=== PATIENT | female | born 1985 | race Caucasian/White ===

== ENCOUNTER 2020-10-15 08:54 | Emergency (ER) | payer MEDICAID, SELFPAY ==
[2020-10-15 09:03] VITALS: BP 105/59; PULSE 86; RESP 18; TEMP 36.6; O2SAT 97; BMI 36.2
--- NOTE | 2020-10-15 09:23 | ED_ITS ---
HPI - Extremity Problem General Chief complaint: Extremity Injury, Upper Stated complaint: neck shoulder arm pain Time Seen by Provider: 10/15/20 09:14 Source: patient Mode of arrival: ambulatory Limitations: language barrier (Citizen [place]-speaking) History of Present Illness HPI Narrative: 35yoF c No Sig PMHx presenting to the ED c c/o R neck/shoulder/arm pain since Friday. Patient reports this started after she had to perform repetitive hand movements and lifting boxes/pallets while [facility] [employer] [facility] when a truck arrived at 20:30 with 27 pallets on it and her and another lady had to unload the truck. Patient denies any headaches, dizziness, paresthesias, numbness, joint swelling/stiffness, chest pain or shortness, of breath, palpitations, any symptoms or any other symptoms complaints or concerns at this time. Related Data Previous Rx's Medication Instructions Recorded acetaminophen-codeine 1 tab PO Q8H PRN #10 tab 10/15/20 cyclobenzaprine 10 mg PO TID PRN #10 tab 10/15/20 ibuprofen 800 mg PO Q8H PRN #14 tab 10/15/20 lidocaine [Lidoderm] 1 patch TOPICAL DAILY #30 ea 10/15/20 Allergies Allergy/AdvReac Type Severity Reaction Status Date / Time No Known Allergies Allergy Verified 10/15/20 09:06 Review of Systems Review of Systems: Constitutional : No Fever, No Chills, No Night Sweats, No Fatigue, No Malaise ENT/Mouth : No Hearing loss, No Ear Pain, No Nasal Congestion, No Sinus Pain, No Hoarseness, No sore throat, No Rhinorrhea, No Swallowing Difficulty Eyes: No Eye Pain, No Swelling, No Redness, No Foreign Body, No Discharge, No Vision Changes Cardiovascular : No Chest Pain, No SOB, No Dyspnea on Exertion, No Orthopnea, No Edema, No Palpitations Respiratory : No Cough, No Sputum, No Wheezing, No Dyspnea Gastrointestinal : No Nausea, No Vomiting, No Diarrhea, No Constipation, No abdominal Pain, No Hematochezia, No Melena Genitourinary : no irregular bleeding, No Dysuria, No Urinary Frequency, No Hematuria, No Urinary Incontinence, No Urgency, No Flank Pain, No Urinary Flow Changes, No Hesitancy Musculoskeletal : + joint pain, No Myalgias, No Joint Swelling Skin : No Skin Lesions, No rash Neuro : No Weakness, No Numbness, No Paresthesias, No Dizziness, No Headache Heme/Lymph:No Lymphadenopathy Yes all other systems are reviewed and are negative [facility] Past Medical History Attestation statement: The following information was validated with the patient. Medical History No known health problems Social History Social History Advance Directives: No Advance Directives Information Provided: No Physical Exam Vital Signs: Vital Signs: Last Vital Signs Temp 97.9 F 10/15/20 09:03 Pulse 86 10/15/20 09:03 Resp 18 10/15/20 09:03 BP 105/59 L 10/15/20 09:03 Pulse Ox 97 10/15/20 09:03 Body Mass Index 36.2 vital signs have been reviewed as normal and appeared to be correct. Blood pressure normal. Heart rate normal. Respiration rate normal. Temperature normal. Oxygen saturation normal. Appearance: Alert. Oriented X3. Patient very tearful in pain otherwise No acute distress. Head: Normal external exam. Normocephalic. Atraumatic. Eyes: PERRLA. EOMI. Conjunctiva and sclera normal. Eyelids normal. ENT: Pharynx normal. Uvula midline. Moist mucous membranes. Neck: Normal inspection. Neck supple. FROM. No adenopathy. No meningeal signs. No neck mass noted. Patient tender to palpation of right paracervical muscu lature/trapezius muscle. Muscle spasm noted. No mid cervical tenderness step- offs or deformities noted. Patient has full range of motion of neck and upper and lower extremities. Reflexes intact bilaterally and distally. Patient neuro intact bilaterally and distally on all 4 extremities. No rashes/lesion/induration/fluctuance or signs of infection noted. CVS: Normal heart rate and rhythm. Heart sound normal. No murmurs noted. Pulses normal throughout. Respiratory: No respiratory distress. Painless inspiration. Breath sounds normal. No wheezes/rales/rhonchi noted. Chest nontender. No accessory muscle usage noted or decreased air movement noted. Back: Full range of motion noted. Skin: Skin warm and dry. Normal skin color. Normal skin turgor. No rashes/lesions/lacerations noted. Extremities: Extremities exhibit normal range of motion. Extremities nontender. Neuro: Oriented X 3. No motor deficit. No sensory deficit. Reflexes normal. Patient has a normal steady gait. Course Course Course Narrative: 35yoF c No Sig PMHx presenting to the ED c c/o R neck/shoulder/arm pain since Friday. Patient reports this started after she had to perform repetitive hand movements and lifting boxes/pallets while working at [employer] when a truck arrived at 20:30 with 27 pallets on it and her and another lady had to unload the truck. - on exam patient is alert and oriented x3. Is very tearful and pain although denies any acute other acute distress. Patient has muscle spasm 2 right pa racervical/trapezius muscle. Has full range of motion of neck and upper and lower extremities. No obvious deformities. Pt c likely muscular pain, but could be herniated disc. Neuro exam shows no deficits. Not c/w AAA/epidural abscess/dissection.No high risk Hx (Incont, fever, immunosupp, recent surgery/LP, coag, signif trauma, wt loss, puls mass, hx/o Ca, TB, or IVDU) to warrant MRI/CT today. Not c/w Pyelo/UTI/kidney stone/spinal fx. Not cauda equina syndrome. DC c meds and f/u. Patient understands and agrees the plan. MDM - Extremity (Nontraumatic) Medical Records Attestation: I reviewed the patient's medical records. Discharge Plan Discharge Clinical Impression: Neck muscle spasm, Trapezius muscle spasm, Muscle spasm of right shoulder, Work related injury Patient Disposition: Home, Self-Care Instructions: Muscle Spasm (ED), Return to Work Instructions (ED) Prescriptions: New cyclobenzaprine 10 mg tablet 10 mg PO TID PRN (Reason: muscle spasm) Qty: 10 RF: 0 ibuprofen 800 mg tablet 800 mg PO Q8H PRN (Reason: pain) Qty: 14 RF: 0 acetaminophen-codeine 300-30 mg tablet 1 tab PO Q8H PRN (Reason: pain) Qty: 10 RF: 0 lidocaine [Lidoderm] 5 % adhesive patch,medicated 1 patch topical DAILY Qty: 30 RF: 0 Referrals: Cj Pride MD [Physician] - 2 days Emma Guadalupe PA [Physician Application Development Director] - 2 days Altagracia Mitchell PA [Physician Application Development Director] - 2 days January,Shreya June PA-C [Physician Application Development Director] - 2 days Stand Alone Forms: Work/School Release Print Language: Citizen [place]
== END 2020-10-15 10:09 | disposition home or self-care (01) ==
PROVIDERS: Emergency Provider Internal Medicine
DX: S13.9XXA Sprain of joints and ligaments of unspecified parts of neck, initial encounter (principal); M54.2 Cervicalgia; M62.838 Other muscle spasm; X50.0XXA Overexertion from strenuous movement or load, initial encounter; X50.3XXA Overexertion from repetitive movements, initial encounter; Y93.9 Activity, unspecified; Y92.9 Unspecified place or not applicable; Y99.0 Civilian activity done for income or pay
CPT/HCPCS: 99283

== ENCOUNTER 2023-06-25 06:38 | Outpatient (REF) | payer MEDICAID, SELFPAY | END 2023-06-25 06:39 | disposition home or self-care (01) | LOC: HO.HOSX 06:38 | PROVIDERS: Visit Provider Orthopaedic Surgery | DX: M25.562 Pain in left knee (principal) | CPT/HCPCS: 20610; 73562; 99202; J3301 ==

== ENCOUNTER 2023-06-25 09:44 | Outpatient (AMB) | payer MEDICAID, SELFPAY ==
--- NOTE | 2023-06-25 09:52 | A.OFFVIS_ITS ---
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 by Dr. Dior approximately 2 years ago. The patient states that initially she got fairly good relief from that procedure. She then re-injured her knee approximately 1 year ago. She states that she had an MRI in [place] at that time but she does not remember the name of the facility. She states that her left knee will give out several times per day. She has done physical therapy which aggravated her symptoms. She has also tried Tylenol and anti-inflammatory medicines which gave her minimal relief. Allergies No Known Allergies Allergy (Verified 06/25/23 10:00) Medication List - Last Reconciled 06/25/23 by Tomasz Thacker MD acetaminophen-codeine 300-30 mg 1 tab PO Q8H PRN cyclobenzaprine 10 mg PO TID PRN ibuprofen 800 mg PO Q8H PRN lidocaine 5% (Lidoderm) 1 patch topical DAILY PFSH Medical History No known health problems Physical Exam Vital Signs: BMI result Body Mass Index 38.9 Const Other: Well-nourished well-developed very friendly female awake alert and oriented x3 in no acute distress Extrem Other: Bilateral lower extremity examination shows good capillary refill, no skin lesions noted, normal sensation light touch Left knee examination shows that the surgical incisions are well healed, no erythema, minimal crepitus with range of motion, tenderness along her medial joint line, positive Steffi's test, no instability Office Procedures Joint Injection/Drain Joint Injection/Drain Primary Site: left knee Prep: site was prepped using aseptic technique Injected: 40 mg of, Kenalog and 1% plain lidocaine Procedure: The patient tolerated the procedure well Coding 75486 - Large joint Procedure code (CPT) selection complete Results Reviewed Results Reviewed: 06/25/23 10:06 Lidocaine HCl 2 % MPF [Xylocaine 2 % MPF] 5 ml .ROUTE .STK-MED ONE Triamcinolone Acetonide [Kenalog-40] 40 mg .ROUTE .STK-MED ONE X-rays of the patient's left knee show mild joint space narrowing, no acute bony abnormalities Previous MRI films are not available today Assessment & Plan Assessment & Plan (1) Left knee pain: Code(s): M25.562 - Pain in left knee Plan Ms. Arnaldo Orellana presents with left knee pain and mechanical symptoms most likely due to a tear of her medial meniscus. I had a lengthy discussion with the patient regarding the treatment options. The patient wishes to hold off on further surgery for as long as possible. I agree with this plan. The risks and benefits of a cortisone injection were discussed at length with the patient. The patient wished to proceed. Following the injection I aspirated 60 cc of clear fluid from her left knee. The patient tolerated the injection well. Activity modifications were discussed at length with the patient. She will follow up with me on an as-needed basis should her symptoms not plateau at an unacceptable level over the next few months. Feel free to call me at any time should questions regarding her orthopedic management arise. Thank you very much for asking me to see this very nice patient. I spent 22 minutes in reviewing the patient's records and imaging studies, seeing the patient and documenting in the medical record. Orders: Orders XR knee LT 3V Today M25.562 - Pain in left knee AMB Joint Injection/Aspiration Today M25.562 - Pain in left knee Coding Level of Care Code New Pt Level 2 (70565) Diagnoses Left knee pain M25.562 CPT Codes Coding - 61103 Large joint: 03312 - Large joint ([id number])
[2023-06-25 10:00] VITALS: BMI 38.9
== END 2023-06-25 10:24 | disposition home or self-care (01) ==
PROVIDERS: Visit Provider Orthopaedic Surgery
DX: M25.562 Pain in left knee (principal)
CPT/HCPCS: 20610; 99202

== ENCOUNTER 2024-06-30 09:14 | Outpatient (REF) | payer MEDICAID, SELFPAY ==
[2024-06-30 11:29] LABS: MANUAL DIFF FLAG NO
[2024-06-30 11:58] LABS: Basophils Percent Auto 0.5 % (0-2); Eosinophils Absolute Auto 0.1 X10*3/uL (0.0-0.4); Eosinophils Percent Auto 1.4 % (0-4); Hematocrit 39.8 % (37.0-47.0); Hemoglobin 13.2 g/dl (12.0-16.0); Imm Gran Abs Auto 0.01 X10*3/uL (0.00-0.03); Imm Gran Pct Auto 0.2 % (0.0-0.4); Lymphocytes Percent Auto 23.9 % (20-40); Mean Corpuscular HGB Conc 33.2 g/dl (31.0-35.0); Mean Corpuscular Hemoglobin 30.8 pg (27.0-33.0); Mean Corpuscular Volume 92.8 fL (80.0-98.0); Mean Platelet Volume 10.1 fL (9.4-12.3); Monocytes Absolute Auto 0.4 X10*3/uL (0.1-1.2); Monocytes Percent Auto 9.6 % (2-11); Neutrophils Absolute Auto 2.7 x10*3/uL (2.0-8.3); Neutrophils Percent Auto 64.4 % (45-73); Platelet Count 261 X10*3/uL (160-400); Red Blood Count 4.29 X10*6/uL (4.20-5.50); Red Cell Distribution Width 12.7 % (11.0-16.0); White Blood Count 4.2 X10*3/uL (4.8-10.8)
[2024-06-30 12:26] LABS: Alanine Aminotransferase 15 U/L (0-31); Alkaline Phosphatase 48 U/L (39-117); Anion Gap 9 (12-20); Aspartate Amino Transferase 16 U/L (5-31); Bilirubin Total 0.8 mg/dL (0.0-1.0); Blood Urea Nitrogen 14 mg/dL (9-16); Calcium 9.1 mg/dL (8.4-10.2); Carbon Dioxide 28 mmol/L (22-29); Chloride 106 mmol/L (96-108); Cholesterol 187 mg/dL (<200); Estimated Glomerular Filt Rate > 60; Glucose Random 94 mg/dL (60-115); HDL Cholesterol 62 mg/dL (>40); Insulin 12 uU/mL (2-29); LDL Cholesterol Calculated 107 mg/dL (<100); Potassium 3.9 mmol/L (3.3-5.1); Sodium 139 mmol/L (135-145); TSH reflex Free T4 0.94 uIU/mL (0.32-4.0); Total Protein 7.2 g/dL (6.5-8.0); Triglycerides 92 mg/dL (<150)
[2024-06-30 12:28] LABS: HIV AB/AG Nonreactive (Nonreactive); HIV Num 1 0.06 S/CO (0.00-0.99); Rheumatoid Factor 14.6 IU/mL (<15.0); ~HepC Num1 0.93 S/CO (0.00-0.79)
[2024-06-30 12:36] LABS: Erythrocyte Sedimentation Rate 9 MM/HR (0-20)
[2024-06-30 14:07] LABS: ~HepC Num2 0.93; ~HepC Num3 0.95
[2024-06-30 14:08] LABS: ~Hepatitis C Antibody GRAYZONE (Nonreactive)
[2024-07-02 12:29] LABS: Anti Nuclear Antibody Screen NEGATIVE (NEGATIVE)
[2024-07-03 14:24] LABS: HCV Log PCR <1.18 NOT DETECTED Log IU/mL (NOT DETECTED); HepC Viral Load <15 NOT DETECTED IU/mL (NOT DETECTED)
[2024-07-07 13:08] LABS: Cyclic Citrullinated Peptide <16 UNITS
== END 2024-06-30 09:15 | disposition home or self-care (01) ==
LOC: HO.CHCLDS 09:14
PROVIDERS: Visit Provider Family Medicine
DX: E66.812 Obesity, class 2 (principal); Z68.38 Body mass index [BMI] 38.0-38.9, adult; Z13.9 Encounter for screening, unspecified; M25.50 Pain in unspecified joint; Z13.29 Encounter for screening for other suspected endocrine disorder; Z13.228 Encounter for screening for other metabolic disorders; Z13.0 Encounter for screening for diseases of the blood and blood-forming organs and certain disorders involving the immune mechanism
CPT/HCPCS: 36415; 80053; 80061; 83525; 84443; 85025; 85652; 86038; 86140; 86200; 86431; 86803; 87389; 87522

== ENCOUNTER 2024-10-10 09:38 | Emergency (ER) | payer OTHER, SELFPAY ==
[2024-10-10 10:07] VITALS: BP 108/50; PULSE 83; RESP 18; TEMP 36.7; O2SAT 99; BMI 38.0
--- NOTE | 2024-10-10 14:09 | ED.DENTAL ---
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 Reports history of poor dentition. She has not followed with a dentist in some time. The last time she saw a dentist was when she lived in [place]. She reports pain to her right lower and upper wisdom teeth x2 days. She has been taking Motrin at home with minimal relief. Denies radiation of pain. Denies difficulty opening her mouth or swallowing. Denies difficulty controlling secretions. Denies any drainage. Denies fever or chills. Denies trauma/ injury. MD Complaint: tooth pain Location: Tooth # (1, 32) Onset (ago): day(s) (2) Duration: constant Severity: severe Severity scale (1-10): >10 Relieving factors: NSAIDs Related Data Previous Rx's ?Medication ?Instructions ?Recorded acetaminophen 300 mg-codeine 30 mg 1 tab PO Q8H PRN pain #10 tabs 10/15/20 tablet cyclobenzaprine 10 mg tablet 10 mg PO TID PRN muscle spasm #10 10/15/20 tabs ibuprofen 800 mg tablet 800 mg PO Q8H PRN pain #14 tabs 10/15/20 lidocaine 5 % topical patch 1 patch topical DAILY pain #30 ea 10/15/20 (Lidoderm) amoxicillin 875 mg-potassium 1 tab PO BID 7 days #14 tabs 10/10/24 clavulanate 125 mg tablet tramadol 50 mg tablet 50 mg PO Q8H PRN pain (scale score 10/10/24 4-6) #7 tabs Allergies Allergy/AdvReac Type Severity Reaction Status Date / Time No Known Allergies Allergy Verified 10/10/24 10:09 Review of Systems Review of Systems: Constitutional: No fever, chills, fatigue, night sweats, weight changes ENT/Mouth: No ear pain, hearing loss, nasal congestion, sinus pain, rhinorrhea, sore throat, +dental pain Eyes: No eye pain, swelling, redness, vision changes, discharge Cardio: No chest pain, palpitations, LEON, orthopnea, peripheral edema Pulm: No SOB, cough, sputum, wheezing, dyspnea, hemoptysis GI: No nausea, vomiting, hematemesis, abdominal pain, diarrhea, constipation, hematochezia, melena : No irregular bleeding, dysuria, frequency, urgency, hesitancy, hematuria, flank pain, urinary flow changes, urinary incontinence or retention MSK: No back pain, neck pain, joint pain, myalgias Skin: No lesions, rashes Neuro: No weakness, numbness, paresthesias, LOC, dizziness, headache Psych: No anxiety/panic, depression, SI/HI, AH/VH All other systems reviewed and are negative. [facility] Past Medical History Attestation statement: The following information was validated with the patient. Source: old records reviewed and nursing notes reviewed Medical History No known health problems Physical Exam Vital Signs: Vital Signs: Last Vital Signs Temp 98.0 F 10/10/24 10:07 Pulse 83 10/10/24 10:07 Resp 18 10/10/24 10:07 BP 108/50 L 10/10/24 10:07 Pulse Ox 99 10/10/24 10:07 O2 Del Method Room Air 10/10/24 10:07 BMI result Body Mass Index 38.0 Vital signs stable, afebrile General: Well appearing, in no acute distress. Skin: Warm, dry, intact. No rashes or lesions. Head: Normocephalic, atraumatic. EENT: Hearing is intact b/l. Conjunctiva clear. PERRLA. EOM intact. Moist mucous membranes.? + No facial edema. Tongue and lips wnl + multiple dental caries and poor dentition. Right upper and lower wisdom teeth with localized periapical swelling to the fecal ginginva. No pointing. No active bleeding/ discharge. TTP. No palpable fluctuance. No edema to buccal mucosa + Posterior oropharynx without erythema/edema. Uvula midline. Controlling secretions and speaking in complete sentences + No submandublar, submental or cervical LAD. No anterior neck swelling. no trismus. Cardiac: Chest wall symmetric. RRR Lungs: Normal respiratory effort without accessory muscle use. CTA bilaterally Ext: Upper and lower extremities atraumatic, without tenderness, deformity, swelling or erythema Neuro: AOx3. Normal speech. Ambulating with steady gait. Course Course Course Narrative: Patient noted to have dental infection. There is no evidence of abscess that warrants drainage at this time. Will discharge patient home with appropriate pain control and Augmentin. Patient advised to follow up with dentist this week. A referral has been provided. Patient has remained stable throughout ED visit today. I discussed worrisome signs and symptoms and when to return to the ED. All questions answered at this time. Patient is agreeable with disposition and stable for discharge. Medical Decision Making Medical Decision Making MDM Narrative: 39-year-old Citizen [place]-speaking female with no significant past medical history presents to the ED today for evaluation of dental pain x2 days. Vital signs stable. Afebrile. She is nontoxic-appearing and in no acute distress. On exam, no facial edema. Tongue and lips wnl. multiple dental caries and poor dentition. Right upper and lower wisdom teeth with localized periapical swelling to the fecal ginginva. No pointing. No active bleeding/ discharge. TTP. No palpable fluctuance. No edema to buccal mucosa. Posterior oropharynx without erythema/edema. Uvula midline. Controlling secretions and speaking in complete sentences. No submandublar, submental or cervical LAD. No anterior neck swelling. Differential includes dental/ periapical abscess/infection, apthous stomatitis. Unlikely mono, herpes, sialadenitis, sialolithiasis, CLINICAL EXERCISE PHYSIOLOGIST, retropharyngeal abscess, deep neck infection, osteomyelitis, facial cellulitis/ abscess, lymphoma, Jorje's angina. Plan for pain control and discharge home with antibiotics and dentist follow up. Differential Diagnosis Differential Diagnoses: The differential diagnosis associated with the presentation includes as above. Admission/Observation Not indicated. Tests considered The following testing was considered but not selected: I considered obtaining a CT of the soft tissues neck however these is no evidence of ludwigs angina or concern for deep tissue infection. Not warranted at this time. Prescription Management I considered prescription management with: Pain Medication and Antibiotic Social Determinants Patient?s care significantly limited by Social Determinants of Health including: Other Social Determinant of Health Critical Care Time Critical Care Time Critical Care Time: No Discharge Plan Discharge Clinical Impression: Toothache Patient Disposition: Home, Self-Care Instructions: Toothache (ED) Additional Instructions: You were evaluated in ED today for dental pain. Augmentin is an antibiotic that has been sent to your pharmacy for treatment. Take this as prescribed and do not skip any doses. Take this to completion or the infection may persist or worsen. On Augmentin, softer bowel movements are to be expected. Call your provider if you move your bowels more than 4 times a day, your bowel movements are almost all liquid, or you get a rash.? Take tylenol/ motrin at home as needed for pain. Tramadol is a pain medication that has been sent to your pharmacy for you to take for break-through pain. Use this with caution. YOU NEED TO FOLLOW UP WITH A DENTIST. You have been provided with a referral to [facility]. They are currently taking new clients. Call them to make an appointment. They will not call you. Return with new or worsening symptoms. In the case of an emergency call 471. [facility]: [phone] [address] [facility] [address] Prescriptions: New amoxicillin-pot clavulanate 875-125 mg tablet 1 tab PO BID 7 Days Qty: 14 0RF tramadol 50 mg tablet 50 mg PO Q8H PRN (Reason: pain (scale score 4-6)) Qty: 7 0RF No Action cyclobenzaprine 10 mg tablet 10 mg PO TID PRN (Reason: muscle spasm) Qty: 10 0RF ibuprofen 800 mg tablet 800 mg PO Q8H PRN (Reason: pain) Qty: 14 0RF acetaminophen-codeine 300-30 mg tablet 1 tab PO Q8H PRN (Reason: pain) Qty: 10 0RF lidocaine [Lidoderm] 5 % adhesive patch,medicated 1 patch topical DAILY Qty: 30 0RF Rx Instructions: leave on most painful area for up to 12 hrs. Can be substituted Print Language: Citizen [place]
[2024-10-10 14:24] VITALS: BP 108/50; PULSE 83; RESP 18; TEMP 36.7; O2SAT 99
== END 2024-10-10 14:24 | disposition home or self-care (01) ==
PROVIDERS: Emergency Provider Emergency Medicine; PCP Family Medicine
DX: K08.89 Other specified disorders of teeth and supporting structures (principal)
CPT/HCPCS: 99282

== ENCOUNTER 2025-07-19 11:20 | Outpatient (REF) | payer OTHER, SELFPAY ==
--- OUTSIDE RECORDS SUMMARY | 2025-07-19 11:00 | XMS_ITS | Encounter Summary ---
Author Organization [employer] Address [address] [place] [address] [address] [place] [address] Care Team Providers Care Sales Branch Manager Name Role Phone Ira Wu MD Primary Care Provider [phone] Reason for Referral * Imaging (Routine) - Authorized Specialty Diagnoses / Procedures Referred By Contac t Referred To Contact Radiology Diagnoses Right-sided pelvic pain Procedures US Pelvis Transvaginal Ira Wu MD [address] [place] [address] Phone: tel: fax: [address] Phone: tel: fax: Referral ID Status Reason Start Date Expiration Date V isits Requested Visits Authorized [id number] Authorized 07/19/2025 07/19/2026 1 1 * Imaging (Routine) - Authorized Specialty Diagnoses / Procedures Referred By Contac t Referred To Contact Radiology Diagnoses Right-sided pelvic pain Procedures Us Pelvis complete Ira Wu MD [address] [place] [address] Phone: tel: fax: [address] Phone: tel: fax: Referral ID Status Reason Start Date Expiration Date V isits Requested Visits Authorized [id number] Authorized 07/19/2025 07/19/2026 1 1 Reason for Visit * Reason Comments Gynecologic Exam , P:2, C:2, A:0 Encounter Details Date Type Department Care Team (Latest Contact Info) Description 07/19/2025 11:00 AM EDT Procedure Visit [facility] [address] [place] [address] Ira Wu MD [address] [place] [address] Right-sided pelvic pain (Primary Dx); Cervical cancer screening Social History Tobacco Use Types Packs/Day Years Used Date Smoking Tobacco: Never Passive Smoke Exposure: Never Smokeless Tobacco: Never Tobacco Cessation:Counseling Given: Not Answered Alcohol Use Standard Drinks/Week Comments Never 0 (1 standard drink = 0.6 oz pur e alcohol) Depression Answer Date Recorded Patient Health Questionnaire-9 Score 5 06/29/2024 Patient Health Questionnaire-9 Score 5 06/29/2024 Last PHQ-9: Questionnaire Data Not on file 1 Housing Stability Answer Date Recorded What is your housing situation today? I have maira xie 06/29/[address] you li ve. Do you have problems with any of the following? None of the above 06/29/2024 Food Insecurity Answer Date Recorded Within the past 12 months, y ou worried that your food would run out before you got money to buy more: Never True 06/29/2024 Within the past 12 months,th e food you bought just didn't last and you didn't have enough money to get more: Never True 04/2024 Transportation Answer Date Recorded In the past 12 months, has l ack of transportation kept you from medical appts, meetings, work or from getting things needed for daily living? No 06/29/2024 Utilities Answer Date Recorded In the past 12 months, has t he electric, gas, oil or water company threatened to shut off services in your home? No 06/29/2024 Depression Answer Date Recorded Patient Health Questionnaire-2 Score 1 06/29/2024 Internet Access Answer Date Recorded Internet Access Q1 Yes 06/29/2024 Internet Access Q2 Not on file 06/29/2024 Comments No Sex and Gender Information Value Date Recorded Sex Assigned at Female 07/22/2022 10:37 AM EDT Legal Sex Female 10:37 AM EDT Gender Identity Female 07/22/2022 10:37 AM EDT Sexual Orientation Straight 07/22/2022 10 :37 AM EDT documented as of this encounter Last Filed Vital Signs Vital Sign Reading Time Taken Comments Blood Pressure 130/80 07/19/2025 10:59 AM EDT Pulse 80 07/19/2025 10:59 AM EDT Temperature 36.5 C (97.7 F) 07/19/2025 10:59 AM EDT Respiratory Rate 16 07/19/2025 10:59 AM EDT Oxygen Saturation - - Inhaled Oxygen Concentration - - Weight 105 kg (232 lb) 07/19/2025 10:59 AM EDT Height 165.1 cm (5' 5 ) 07/19/2025 10:59 AM EDT Body Mass Index 38.61 07/19/2025 10:59 AM EDT documented in this encounter Plan of Treatment Upcoming Encounters Date Type Department Care Team (Late st Contact Info) Description 09/08/2025 11:30 AM EST Office Visit [facility] [address] [place] [address] Ira Wu MD [address] [place] [address] 09/30/2025 9:15 AM EST Office Visit [facility] [address] [place] [address] Ira Wu MD [address] [place] [address] Scheduled Orders Name Type Priority Associated Diagnoses Order Schedule Us Pelvis complete Imaging Routine Right-sided pelvic pain Expected: 07/19/2025, Expires: 07/19/2026 US Pelvis Transvaginal Imaging Routine Right-sided pelvic pain Expected: 07/19/2025, Expires: 07/19/2026 Pap Smear Pathology and Cytology Routine Right-sided pelvic pain Ordered: 07/19/2025 HPV High Risk with Reflex to Subtypes Lab Routine Right-sided pelvic pain Ordered: 07/19/2025 STI testing add on (NG, CT, Trich) Pathology and Cytology Routine Right-sided pelvic pain Ordered: 07/19/2025 documented as of this encounter Visit Diagnoses Diagnosis Right-sided pelvic pain- Primary Cervical cancer screening Screening for malignant neoplasm of the cervix documented in this encounter Additional Health Concerns Assessment Noted Time PHQ-9 Depression Total Score: 5 06/29/20 1:33 PM EDT documented as of this encounter Care Teams Sales Branch Manager Relationship Specialty Start Date End Date Ira Wu MD [address] [place] [id number] PCP - General Family Medicine 06/28/24 documented as of this encounter
--- OUTSIDE RECORDS SUMMARY | 2025-07-19 18:25 | XMS_ITS | Clinical Summary ---
Author Organization [employer] Address [address] [facility] [address] [place] [address] Care Team Providers Care Brick Tester Name Role Phone Ira Wu MD Primary Care Provider [phone] Allergies No known active allergies Medications cyclobenzaprine (Flexeril) 10 MG tablet Take 1 tablet (10 mg) by mouth 3 times daily for 10 days. 30 tablet 06/29/2024 Active diclofenac (Voltaren) 75 MG EC tablet Take 1 tablet (75 mg) by mouth 2 times daily. Do not crush, chew, or split. 60 tablet 1 06/29/2024 Active Active Problems Problem Noted Date Diagnosed Date Right-sided pelvic pain 07/19/2025 Chronic pain of left knee 06/29/2024 Assessment & Plan (06/29/2024 3:03 PM EDT): Chronic prior meniscal surgery and steroid injection, will send for PT, will need to look for record of recent xray done in [facility] per pt report Neck pain 06/29/2024 Assessment & Plan (06/29/2024 3:03 PM EDT): Will send msk relaxer and NSAID, will send x ray f/up with results. Class 2 obesity without seri ous comorbidity with body mass index (BMI) of 38.0 to 38.9 in adult 06/29/2024 Assessment & Plan (06/29/2024 3:02 PM EDT): Discussed calorie deficit, recommended reduction of 20-30% of maintenance calories; outpatient facility physical therapist referral offered. Recommended to decrease soda and sugary beverage consumption. Recommended at least 20 g per meal of protein to assist with satiety. Recommended at least 150 min/week of moderate intensity exercise. Encounters Date Type Department Care Team Description 07/19/2025 11:00 AM EDT Procedure Visit [facility] [address] [place] [address] Ira Wu MD Right-sided pelvic pain (Primary Dx); Cervical cancer screening 07/19/2025 Travel 07/11/2025 Telephone [facility] [address] [place] [address] Ira Wu MD Chart Prep from Last 3 Months Immunizations Immunization Administration Dates Next Due Influenza Injectable Quadriv alant Preservative Free IIV4 MDCK 07/23/2023 Influenza injectable quadrivalent preservative f ree 07/21/2020 Influenza, Injectable, MDCK, preservative free 0 06/16/2025 Influenza, seasonal, injectable, preservative fr ee 06/29/2024 Tdap 06/29/2024 Family History Medical History Relation Name Comments Hypertension Father Rheum arthritis Mother Thyroid disease Mother Relation Name Status Comments Father Mother Social History Tobacco Use Types Packs/Day Years [...] Orientation Straight 07/22/2022 10 :37 AM EDT Last Filed Vital Signs Vital Sign Reading Time Taken Comments Blood Pressure 130/80 07/19/2025 10:59 AM EDT Pulse 80 07/19/2025 10:59 AM EDT Temperature 36.5 C (97.7 F) 07/19/2025 10:59 AM EDT Respiratory Rate 16 07/19/2025 10:59 AM EDT Oxygen Saturation 100% 06/29/2024 1:31 PM EDT Inhaled Oxygen Concentration - - Weight 105 kg (232 lb) 07/19/2025 10:59 AM EDT Height 165.1 cm (5' 5 ) 07/19/2025 10:59 AM EDT Body Mass Index 38.61 07/19/2025 10:59 AM EDT Plan of Treatment Upcoming Encounters Date Type Department Care Team (Late st Contact Info) Description 09/08/2025 11:30 AM EST Office Visit [facility] [address] [place] [address] Ira Wu MD [address] [place] [address] 09/30/2025 9:15 AM EST Office Visit [facility] [address] [place] [address] Ira Wu MD [address] [place] [address] Health Maintenance Due Date Last Done Comments Dental Oral Exam 1986 Dental Prophylaxis 1986 Dental X-Ray: Bitewings 1986 Dental X-Ray: Full Mouth 1986 Family Planning (PISQ) 2001 HPV Vaccines (1 - 3-dose series) 2001 Hepatitis B Vaccines (1 of 3 - 19+ 3-dose series) 2005 COVID-19 Vaccine ( season) 2025 11/30/2021, 03/02/2021, 02/09/2021 Depression Screening 06/29/2025 06/29/2024, 06/29/20 24 SDOH Screening 06/29/2025 06/29/2024 Cervical Cancer Screening 07/21/2025 HPV/Cotest 07/21/2025 07/21/2020 Pap Smear 07/21/2025 07/21/2020 Alcohol/Substance Use Screening 07/19/2026 07/19/2025 Disability Screening 07/19/2026 07/19/2025 Tobacco Screening 07/19/2026 07/19/2025 Lipid Panel 06/30/2029 06/30/2024, 02/10/2021, 07/10/2020 DTaP/Tdap/Td Vaccines (2 - Td or Tdap) 06/29/2034 06/29/2024 Zoster Vaccines (1 of 2) 2036 RSV Patients and Patients Aged 60 years or older (1 - 1-dose 75+ series) 2061 HIV Screening Completed 06/30/2024, 07/10/2020 Hepatitis C Screening Completed 06/30/2024 , 06/30/2024, 07/10/2020 Influenza Vaccine Completed 06/16/2025, , 07/23/2023, Additional history exists HIB Vaccines Aged Out No longer eligi ble based on patient's age to complete this topic Hepatitis A Vaccines Aged Out No long er eligible based on patient's age to complete this topic IPV Vaccines Aged Out No longer eligi ble based on patient's age to complete this topic Meningococcal B Vaccine Aged Out No l onger eligible based on patient's age to complete this topic Meningococcal Vaccine Aged Out No beba caryn eligible based on patient's age to complete this topic Pneumococcal Vaccine: Pediatrics (0 to 5 Years) and At-Risk Patients (6 to 49) Years Aged Out No longer eligible based on patient's age to complete this topic RSV under 20 months Aged Out No longe r eligible based on patient's age to complete this topic Rotavirus Vaccines Aged Out No longer eligible based on patient's age to complete this topic Procedures Procedure Name Priority Date/Time Associated Diagnosis Comments HEPATITIS C AB W/REFL TO HCV RNA, QN, PCR Routine 06/30/2024 9:17 AM EDT Encounter for health-related screening HIV 1/2 ANTIGEN/ANTIBODY, FOURTH GENERATION W/RFL Routine 06/30/2024 9:17 AM EDT Encounter for health-related screening LIPID PANEL, STANDARD Routine 06/30/2024 9:17 AM EDT Class 2 obesity without serious comorbidity with body mass index (BMI) of 38.0 to 38.9 in adult, unspecified obesity type ZZZ HISTORICAL THINPREP PAP AND HPV MRNA E6/E7 REFLEX HPV 16,18/45 Routine 07/21/2020 12:00 AM EDT from Last 3 Months or Most Recently Relevant to Health Maintenance Results * Hepatitis C Antibody with Reflex to HCV, RNA, Quantitative, Real-Time PCR (06/30/2024 9:17 AM EDT) Hepatitis C Antibody GRAYZONE Nonreactive [facility] Comment:Antibodies to HCV ma y or may not be present. Suggest repeatanti-HCV in 4-6 weeks and/or HCV viral load if clinicallyindicated. Blood Venous blood specimen / Unknown 06/30/2024 9:17 AM EDT 06/30/2024 11:25 AM EDT us Ira Wu MD LAB BLOOD ORDERABLES Final Re sult [facility] [address] [place] [phone] * HIV-1/2 Antigen and Antibodies, Fourth Generation, with Reflexes (06/30/2024 9:17 AM EDT) HIV AB/AG Nonreactive Nonreactive [facility] Comment:HIV-1 p24 Ag and/or HIV-1/HIV-2 Ab not detected.A test result that is nonreactive does not exclude thepossibility of exposure to or infection with HIV-1 and/orHIV-2. Nonreactive results in this assay for individualswith prior exposure to HIV-1 and/or HIV-2 may be due toantigen and antibody levels that are below the limit ofdetection of this assay.The [employer] HIV Ag/Ab Combo assay result andsupplemental assay results should be interpreted inconjunction with the patient's clinical presentation,history and other laboratory results. If the results areinconsistent with clinical evidence, additional testing issuggested to confirm the result. Blood Venous blood specimen / Unknown 06/30/2024 9:17 AM EDT 06/30/2024 11:25 AM EDT us Ira Wu MD LAB BLOOD ORDERABLES Final Re sult [facility] [address] [place] [phone] * (ABNORMAL) Lipid Panel, Standard (06/30/2024 9:17 AM EDT) Triglycerides 92 <150 mg/dL [facility] Comment:Desirable Triglyceri de: less than 150 mg/dLBorderline High Triglyceride 150-199 mg/dLHigh Triglyceride: 200-499 mg/dLVery High Triglyceride: greater than or equal to 5OO mg/dL Cholesterol 187 <200 mg/dL [facility] Comment:Desirable Cholestero l: less than 200 mg/dLBorderline High Cholesterol: 200-239 mg/dLHigh Cholesterol: greater than 239 mg/dL LDL Cholesterol Calculated 107(H) <100 mg/dL [facility] Comment:Desirable LDL: less than 100 mg/dLNear Optimal/Above Optimal LDL: 110- 129 mg/dLBorderline High LDL: 130-159 mg/dLHigh LDL: 160-189 mg/dLVery High LDL: greater than or equal to 190 mg/dL HDL Cholesterol 62 >40 mg/dL [facility] Comment:Desirable HDL: great er than 40 mg/dL Note: This HDL assay may give artificially low results in patients with liver disease. Blood Venous blood specimen / Unknown 06/30/2024 9:17 AM EDT 06/30/2024 11:25 AM EDT us Ira Wu MD LAB BLOOD ORDERABLES Final Re sult [facility] [address] [place] [phone] * THINPREP PAP AND HPV mRNA E6/E7 REFLEX HPV 16,18/45 (07/21/2020 12:00 AM EDT) HPV nRNA E6/E7 Not Detected Not Detected [facility] Comment: This test was performed using the APTIMA HPV Assay ([employer] This assay detects E6/E7 viral messenger RNA (mRNA) from 14 high-risk HPV types (16,18,31,33,35,39,45,51,52,56,58,59,66,68). The analytical performance characteristics of this assay have been determined by [employer]. The modifications have not been cleared or approved by the FDA. This assay has been validated pursuant to the CLIA regulations and is used for clinical purposes. Clinical Information: SEE COMMENT [facility] Comment:None given COMMENT SEE COMMENT [facility] Comment: EXPLANATORY NOTE: The Pap is a screening test for cervical cancer. It is not a diagnostic test and is subject to false negative and false positive results. It is most reliable when a satisfactory sample, regularly obtained, is submitted with relevant clinical findings and history, and when the Pap result is evaluated along with historic and current clinical information. Group Director: SEE COMMENT [facility] Comment: DCR, CT(ASCP) CT screening location: [place] [address] Interpretation/Res ult: SEE COMMENT [facility] Comment:Negative for intraep ithelial lesion or malignancy. LMP: [facility]MENT [facility] Comment:NONE GIVEN Prev. BX: NONE GIVEN [facility] Prev. PAP: SEE COMMENT [facility] Comment:NONE GIVEN SOURCE: SEE COMMENT [facility] Comment:None given Statement Of Adequacy: SEE COMMENT [facility] Comment: Satisfactory for evaluation. Endocervical/transformation zone component present. Age and/or menstrual status not provided 07/21/2020 us Alannah Zavaleta NP HISTORICAL/NON ORDERABLE LABS F inal Result [facility] [address] from Last 3 Months or Most Recently Relevant to Health Maintenance [place] [facility] [place] Address: [address] [phone] [facility] Care Teams Brick Tester Relationship Specialty Start Date End Date Ira Wu MD [address] [place] [phone] PCP - General Family Medicine 06/28/24
--- OUTSIDE RECORDS SUMMARY | 2025-07-19 18:25 | XMS_ITS | Encounter Summary ---
Author Organization [employer] Address [address] [place] [address] Care Team Providers Care Flying Shear Operator Name Role Phone Ira Wu MD Primary Care Provider Encounter Details Date Type Department Care Team (Latest Contact Info) Description 07/19/2025 Travel Social History Tobacco Use Types Packs/Day Years Used Date Smoking Tobacco: Never Passive Smoke Exposure: Never Smokeless Tobacco: Never Alcohol Use Standard Drinks/Week Comments Never 0 [...] AM EDT documented as of this encounter Plan of Treatment Upcoming Encounters Date Type Department Care Team (Late st Contact Info) Description 09/08/2025 11:30 AM EST Office Visit [facility] [address] [place] [address] Ira Wu MD [address] [place] [address] 09/30/2025 9:15 AM EST Office Visit [facility] [address] [place] [address] Ira Wu MD [address] [place] [address] documented as of this encounter Visit Diagnoses Not on filedocumented in this encounter Additional Health Concerns Assessment Noted Time PHQ-9 Depression Total Score: 5 06/29/20 24 1:33 PM EDT documented as of this encounter Care Teams Flying Shear Operator Relationship Specialty Start Date End Date Ira Wu MD [address] [place] [phone] PCP - General Family Medicine 06/28/24 documented as of this encounter
[2025-07-25 20:33] LABS: C. trachomatis RNA TMA NOT DETECTED (NOT DETECTED); N. gonorrhoeae RNA TMA NOT DETECTED (NOT DETECTED); Trichomonas (NAAT) NOT DETECTED (NOT DETECTED)
== END 2025-07-19 11:21 | disposition home or self-care (01) ==
LOC: HO.LNP 11:20
PROVIDERS: Visit Provider Family Medicine
DX: R10.21 Pelvic and perineal pain right side (principal); Z11.51 Encounter for screening for human papillomavirus (HPV); Z20.2 Contact with and (suspected) exposure to infections with a predominantly sexual mode of transmission
CPT/HCPCS: 87491; 87591; 87626; 87661; 88175